=== PATIENT | female | born 1940 | race Caucasian/White ===

== ENCOUNTER 2016-03-28 12:24 | Inpatient (IN) | payer MEDICARE, BC ==
[2016-03-28] VITALS (9 sets, daily range): BP systolic 95–114; RESP 20–22; TEMP 99.3–103; Ht 160 cm; Wt 100.2 kg
[~2016-03-28] VITALS: Ht 160 cm; Wt 100.2 kg
[2016-03-28] MEDS ORDERED: OPTIRAY 350 100 ML VIAL HMH IV ONE (13:00)
[2016-03-28] MEDS ORDERED: ONDANSETRON 4 MG VIAL ONE (13:25)
[2016-03-28] MEDS ORDERED: SODIUM CHLORIDE 0.9% 1,000 ML ONE (13:25)
[2016-03-28] MEDS ORDERED: ONDANSETRON 4 MG VIAL IV PRN (16:20)
[2016-03-28] MEDS ORDERED: SALINE FLUSH 10 ML FLUSH PRN (16:20)
[2016-03-28] MEDS ORDERED: DEXTROSE 50% SYRINGE 50 ML IV PRN (16:20)
[2016-03-28] MEDS ORDERED: GLUCAGON 1 MG VIAL IM PRN (16:20)
[2016-03-28] MEDS ORDERED: ACETAMINOPHEN 325 MG TAB PO PRN (16:20)
[2016-03-28] MEDS ORDERED: PHARMACY TO DOSE XX SCH ×2 (16:20)
[2016-03-28] MEDS ORDERED: DUONEB INH PRN (16:20)
[2016-03-28] MEDS ORDERED: ALU/MAG/SIM 30 ML UDC PO PRN (16:20)
[2016-03-28] MEDS ORDERED: Furosemide 20 MG/2 ML VIAL IV SCH (17:10)
[2016-03-28] MEDS: SALINE FLUSH 10 ML FLUSH SCH (20:00)
[2016-03-28] MEDS: FIDAXOMICIN 200 MG TAB PO SCH (22:05)
[2016-03-28] MEDS: PRAVASTATIN 40 MG TAB PO SCH (22:05)
[2016-03-28] MEDS: SACCHA BOULARDII 250MG CAP PO SCH (22:06)
[2016-03-28] MEDS: APIXABAN 5 MG TAB PO SCH (22:06)
[2016-03-28] MEDS: GABAPENTIN 100 MG CAP PO SCH (22:06)
[2016-03-29] VITALS (7 sets, daily range): BP systolic 90–128; RESP 18–20; TEMP 97.2–100.5
[2016-03-29] MEDS: ACETAMINOPHEN 325 MG TAB PO PRN (00:35)
[2016-03-29] MEDS: SODIUM CHLORIDE 0.9% FLUSH BAG 500 ML IV SCH ×2 (06:00→21:55)
[2016-03-29] MEDS ORDERED: TORSEMIDE 20 MG TAB PO SCH (09:00)
[2016-03-29] MEDS ORDERED: BISOPROLOL 5 MG TAB PO SCH (09:00)
[2016-03-29] MEDS ORDERED: METOPROLOL TART 50 MG TAB PO SCH (10:10)
[2016-03-29] MEDS: APIXABAN 5 MG TAB PO SCH ×2 (10:39→20:54)
[2016-03-29] MEDS: GABAPENTIN 100 MG CAP PO SCH ×2 (10:41→20:54)
[2016-03-29] MEDS: SACCHA BOULARDII 250MG CAP PO SCH ×3 (10:41→20:54)
[2016-03-29] MEDS: ALLOPURINOL 300 MG TAB PO SCH (10:41)
[2016-03-29] MEDS: FIDAXOMICIN 200 MG TAB PO SCH ×3 (10:41→20:54)
[2016-03-29] MEDS: SALINE FLUSH 10 ML FLUSH SCH ×2 (10:41→20:50)
[2016-03-29] MEDS: PROMETHAZINE 25 MG/ML VIAL IV PRN ×2 (15:52→21:01)
[2016-03-29] MEDS: METOPROLOL TART 50 MG TAB PO SCH (20:54)
[2016-03-29] MEDS: PRAVASTATIN 40 MG TAB PO SCH (20:54)
[2016-03-30 02:44] VITALS: BP_SYST 118; RESP 20; TEMP 99.5
[2016-03-30] MEDS ORDERED: KCL CR 20 MEQ TAB PO ONE (07:55)
[2016-03-30 08:04] VITALS: BP_SYST 110; RESP 18; TEMP 98.3
[2016-03-30] MEDS: FIDAXOMICIN 200 MG TAB PO SCH ×2 (08:29→20:03)
[2016-03-30] MEDS: SACCHA BOULARDII 250MG CAP PO SCH ×3 (08:29→20:03)
[2016-03-30] MEDS: METOPROLOL TART 50 MG TAB PO SCH ×2 (08:30→20:03)
[2016-03-30] MEDS: APIXABAN 5 MG TAB PO SCH ×2 (08:30→20:03)
[2016-03-30] MEDS: GABAPENTIN 100 MG CAP PO SCH ×2 (08:30→20:02)
[2016-03-30] MEDS: ALLOPURINOL 300 MG TAB PO SCH (08:30)
[2016-03-30] MEDS: SALINE FLUSH 10 ML FLUSH SCH ×2 (08:34→19:57)
[2016-03-30 12:00] VITALS: BP_SYST 112; TEMP 96.8
[2016-03-30 14:35] VITALS: BP_SYST 108; RESP 20; TEMP 97.1
[2016-03-30 19:40] VITALS: BP_SYST 116; RESP 20; TEMP 98.3
[2016-03-30] MEDS: PRAVASTATIN 40 MG TAB PO SCH (20:03)
[2016-03-30 23:38] VITALS: BP_SYST 108; RESP 20; TEMP 98.7
[2016-03-31 04:30] VITALS: BP_SYST 102; RESP 20; TEMP 98.2
[2016-03-31] MEDS: SODIUM CHLORIDE 0.9% FLUSH BAG 500 ML IV SCH (06:00)
[2016-03-31 07:37] VITALS: BP_SYST 118; RESP 20; TEMP 96.6
[2016-03-31] MEDS: SACCHA BOULARDII 250MG CAP PO SCH ×3 (09:33→20:34)
[2016-03-31] MEDS: FIDAXOMICIN 200 MG TAB PO SCH ×2 (09:33→20:33)
[2016-03-31] MEDS: APIXABAN 5 MG TAB PO SCH ×2 (09:33→20:34)
[2016-03-31] MEDS: TORSEMIDE 20 MG TAB PO SCH (09:34)
[2016-03-31] MEDS: SALINE FLUSH 10 ML FLUSH SCH ×2 (09:34→20:34)
[2016-03-31] MEDS: ALLOPURINOL 300 MG TAB PO SCH (09:34)
[2016-03-31] MEDS: METOPROLOL TART 50 MG TAB PO SCH ×2 (09:34→20:34)
[2016-03-31] MEDS: GABAPENTIN 100 MG CAP PO SCH ×2 (09:34→20:34)
[2016-03-31 11:11] VITALS: BP_SYST 102; RESP 20; TEMP 97.1
[2016-03-31 16:04] VITALS: BP_SYST 118; RESP 24; TEMP 97.4
[2016-03-31 19:31] VITALS: BP_SYST 110; RESP 18; TEMP 96.3
[2016-03-31] MEDS: PRAVASTATIN 40 MG TAB PO SCH (20:34)
[2016-03-31 23:32] VITALS: BP_SYST 112; RESP 18; TEMP 98
[2016-04-01] VITALS (7 sets, daily range): BP systolic 98–110; RESP 18–20; TEMP 97.2–98.1
[2016-04-01] MEDS: SODIUM CHLORIDE 0.9% FLUSH BAG 500 ML IV SCH (07:04)
[2016-04-01] MEDS: TORSEMIDE 20 MG TAB PO SCH (09:22)
[2016-04-01] MEDS: FIDAXOMICIN 200 MG TAB PO SCH ×2 (09:22→20:22)
[2016-04-01] MEDS: APIXABAN 5 MG TAB PO SCH ×2 (09:22→20:22)
[2016-04-01] MEDS: SALINE FLUSH 10 ML FLUSH SCH ×2 (09:22→20:22)
[2016-04-01] MEDS: GABAPENTIN 100 MG CAP PO SCH ×2 (09:22→20:22)
[2016-04-01] MEDS: SACCHA BOULARDII 250MG CAP PO SCH ×3 (09:22→20:22)
[2016-04-01] MEDS: ALLOPURINOL 300 MG TAB PO SCH (09:22)
[2016-04-01] MEDS: METOPROLOL TART 50 MG TAB PO SCH ×2 (09:23→20:22)
[2016-04-01] MEDS: ACETAMINOPHEN 325 MG TAB PO PRN (15:52)
[2016-04-01] MEDS: PRAVASTATIN 40 MG TAB PO SCH (20:22)
[2016-04-02] MEDS: SODIUM CHLORIDE 0.9% FLUSH BAG 500 ML IV SCH (02:28)
[2016-04-02 03:46] VITALS: BP_SYST 100; RESP 20; TEMP 99.1
[2016-04-02] MEDS: SALINE FLUSH 10 ML FLUSH SCH ×2 (08:05→21:59)
[2016-04-02] MEDS: FIDAXOMICIN 200 MG TAB PO SCH ×2 (08:05→21:59)
[2016-04-02] MEDS: ALLOPURINOL 300 MG TAB PO SCH (08:05)
[2016-04-02] MEDS: APIXABAN 5 MG TAB PO SCH ×2 (08:05→21:57)
[2016-04-02] MEDS: GABAPENTIN 100 MG CAP PO SCH ×2 (08:05→21:57)
[2016-04-02] MEDS: TORSEMIDE 20 MG TAB PO SCH (08:05)
[2016-04-02] MEDS: METOPROLOL TART 50 MG TAB PO SCH ×2 (08:05→21:58)
[2016-04-02] MEDS: SACCHA BOULARDII 250MG CAP PO SCH ×3 (08:05→21:59)
[2016-04-02 08:28] VITALS: BP_SYST 98; RESP 24; TEMP 98.9
[2016-04-02 11:12] VITALS: BP_SYST 98; RESP 20; TEMP 97.3
[2016-04-02 16:43] VITALS: BP_SYST 98; RESP 16; TEMP 98.2
[2016-04-02 19:59] VITALS: BP_SYST 100; RESP 20; TEMP 98.7
[2016-04-02] MEDS: PRAVASTATIN 40 MG TAB PO SCH (21:57)
[2016-04-02] MEDS: ACETAMINOPHEN 325 MG TAB PO PRN (22:18)
[2016-04-02 23:10] VITALS: BP_SYST 118; RESP 20; TEMP 97.7
[2016-04-03 03:56] VITALS: BP_SYST 110; RESP 20; TEMP 97.3
[2016-04-03] MEDS: SODIUM CHLORIDE 0.9% FLUSH BAG 500 ML IV SCH (05:44)
[2016-04-03 07:38] VITALS: BP_SYST 98; RESP 20; TEMP 97.4
[2016-04-03] MEDS: SALINE FLUSH 10 ML FLUSH SCH ×2 (08:00→19:50)
[2016-04-03] MEDS: SACCHA BOULARDII 250MG CAP PO SCH ×3 (08:34→20:03)
[2016-04-03] MEDS: TORSEMIDE 20 MG TAB PO SCH (08:34)
[2016-04-03] MEDS: ALLOPURINOL 300 MG TAB PO SCH (08:34)
[2016-04-03] MEDS: FIDAXOMICIN 200 MG TAB PO SCH ×2 (08:34→20:03)
[2016-04-03] MEDS: APIXABAN 5 MG TAB PO SCH ×2 (08:34→20:03)
[2016-04-03] MEDS: GABAPENTIN 100 MG CAP PO SCH ×2 (08:35→20:03)
[2016-04-03] MEDS: METOPROLOL TART 50 MG TAB PO SCH ×2 (08:35→20:03)
[2016-04-03 11:26] VITALS: BP_SYST 100; RESP 20; TEMP 98.3
[2016-04-03 15:51] VITALS: BP_SYST 108; RESP 16; TEMP 98.4
[2016-04-03 19:27] VITALS: BP_SYST 118; RESP 20; TEMP 98.8
[2016-04-03] MEDS: PRAVASTATIN 40 MG TAB PO SCH (20:03)
[2016-04-03 22:30] VITALS: BP_SYST 110; RESP 20; TEMP 98.9
[2016-04-04] VITALS (8 sets, daily range): BP systolic 96–112; RESP 16–24; TEMP 97.6–99
[2016-04-04] MEDS: SODIUM CHLORIDE 0.9% FLUSH BAG 500 ML IV SCH ×2 (05:39→20:36)
[2016-04-04] MEDS: SALINE FLUSH 10 ML FLUSH SCH ×2 (07:56→21:02)
[2016-04-04] MEDS: TORSEMIDE 20 MG TAB PO SCH (09:04)
[2016-04-04] MEDS: SACCHA BOULARDII 250MG CAP PO SCH ×3 (09:05→21:02)
[2016-04-04] MEDS: FIDAXOMICIN 200 MG TAB PO SCH ×2 (09:05→21:02)
[2016-04-04] MEDS: METOPROLOL TART 50 MG TAB PO SCH ×2 (09:05→21:02)
[2016-04-04] MEDS: GABAPENTIN 100 MG CAP PO SCH ×2 (09:05→21:02)
[2016-04-04] MEDS: APIXABAN 5 MG TAB PO SCH ×2 (09:05→21:02)
[2016-04-04] MEDS: ALLOPURINOL 300 MG TAB PO SCH (09:05)
[2016-04-04] MEDS: PRAVASTATIN 40 MG TAB PO SCH (21:02)
[2016-04-04] MEDS: ACETAMINOPHEN 325 MG TAB PO PRN (23:45)
[2016-04-05 03:50] VITALS: BP_SYST 92; RESP 20; TEMP 97.2
[2016-04-05 08:34] VITALS: BP_SYST 90; RESP 16; TEMP 97.2
[2016-04-05] MEDS: TORSEMIDE 20 MG TAB PO SCH (09:15)
[2016-04-05] MEDS: GABAPENTIN 100 MG CAP PO SCH ×2 (09:15→21:04)
[2016-04-05] MEDS: SACCHA BOULARDII 250MG CAP PO SCH ×3 (09:15→21:04)
[2016-04-05] MEDS: ALLOPURINOL 300 MG TAB PO SCH (09:15)
[2016-04-05] MEDS: APIXABAN 5 MG TAB PO SCH ×2 (09:15→21:04)
[2016-04-05] MEDS: FIDAXOMICIN 200 MG TAB PO SCH ×2 (09:15→21:04)
[2016-04-05] MEDS: SALINE FLUSH 10 ML FLUSH SCH ×2 (09:17→20:00)
[2016-04-05 10:41] VITALS: BP_SYST 88; RESP 20; TEMP 97.9
[2016-04-05] MEDS: METOPROLOL TART 50 MG TAB PO SCH (13:22)
[2016-04-05] MEDS: METOPROLOL TART 25 MG TAB PO SCH ×2 (14:03→21:00)
[2016-04-05] MEDS: SODIUM CHLORIDE 0.9% 1,000 ML IV SCH (14:39)
[2016-04-05 16:12] VITALS: BP_SYST 110; RESP 20; TEMP 97.6
[2016-04-05 19:35] VITALS: BP_SYST 102; RESP 20; TEMP 98.4
[2016-04-05] MEDS: PRAVASTATIN 40 MG TAB PO SCH (21:03)
[2016-04-06] VITALS (7 sets, daily range): BP systolic 90–130; RESP 18–20; TEMP 96.5–97.6
[2016-04-06] MEDS: ACETAMINOPHEN 325 MG TAB PO PRN (00:11)
[2016-04-06] MEDS: SODIUM CHLORIDE 0.9% 1,000 ML IV SCH ×2 (00:12→16:25)
[2016-04-06] MEDS: SODIUM CHLORIDE 0.9% FLUSH BAG 500 ML IV SCH (05:17)
[2016-04-06] MEDS: SALINE FLUSH 10 ML FLUSH SCH ×2 (08:00→20:00)
[2016-04-06] MEDS: METOPROLOL TART 25 MG TAB PO SCH ×2 (08:45→21:00)
[2016-04-06] MEDS: FIDAXOMICIN 200 MG TAB PO SCH ×2 (08:47→21:12)
[2016-04-06] MEDS: SACCHA BOULARDII 250MG CAP PO SCH ×3 (08:47→21:13)
[2016-04-06] MEDS: GABAPENTIN 100 MG CAP PO SCH ×2 (08:47→21:12)
[2016-04-06] MEDS: APIXABAN 5 MG TAB PO SCH ×2 (08:47→21:12)
[2016-04-06] MEDS: TORSEMIDE 20 MG TAB PO SCH (08:47)
[2016-04-06] MEDS: ALLOPURINOL 300 MG TAB PO SCH (08:47)
[2016-04-06] MEDS: PRAVASTATIN 40 MG TAB PO SCH (21:12)
[2016-04-07] VITALS (7 sets, daily range): BP systolic 98–130; RESP 18–20; TEMP 96.6–97.9
[2016-04-07] MEDS: ACETAMINOPHEN 325 MG TAB PO PRN (00:43)
[2016-04-07] MEDS: SODIUM CHLORIDE 0.9% 1,000 ML IV SCH (05:01)
[2016-04-07] MEDS: SODIUM CHLORIDE 0.9% FLUSH BAG 500 ML IV SCH (05:02)
[2016-04-07] MEDS: SALINE FLUSH 10 ML FLUSH SCH ×2 (08:00→19:58)
[2016-04-07] MEDS: SACCHA BOULARDII 250MG CAP PO SCH ×3 (09:47→20:00)
[2016-04-07] MEDS: APIXABAN 5 MG TAB PO SCH ×2 (09:47→20:00)
[2016-04-07] MEDS: METOPROLOL TART 25 MG TAB PO SCH ×2 (09:48→20:01)
[2016-04-07] MEDS: GABAPENTIN 100 MG CAP PO SCH ×2 (09:48→20:00)
[2016-04-07] MEDS: FIDAXOMICIN 200 MG TAB PO SCH ×2 (09:48→20:00)
[2016-04-07] MEDS: ALLOPURINOL 300 MG TAB PO SCH (09:48)
[2016-04-07] MEDS: KCL CR 10 MEQ CAP PO SCH (13:25)
[2016-04-07] MEDS: PRAVASTATIN 40 MG TAB PO SCH (20:00)
[2016-04-08] VITALS (7 sets, daily range): BP systolic 90–124; RESP 16–20; TEMP 96–98.3
[2016-04-08] MEDS: SODIUM CHLORIDE 0.9% FLUSH BAG 500 ML IV SCH ×2 (06:00→20:12)
[2016-04-08] MEDS: FIDAXOMICIN 200 MG TAB PO SCH ×2 (09:14→20:33)
[2016-04-08] MEDS: ALLOPURINOL 300 MG TAB PO SCH (09:14)
[2016-04-08] MEDS: APIXABAN 5 MG TAB PO SCH ×2 (09:15→20:34)
[2016-04-08] MEDS: METOPROLOL TART 25 MG TAB PO SCH ×2 (09:15→20:33)
[2016-04-08] MEDS: SALINE FLUSH 10 ML FLUSH SCH ×2 (09:15→20:34)
[2016-04-08] MEDS: SACCHA BOULARDII 250MG CAP PO SCH ×3 (09:15→20:33)
[2016-04-08] MEDS: KCL CR 10 MEQ CAP PO SCH (09:15)
[2016-04-08] MEDS: GABAPENTIN 100 MG CAP PO SCH ×2 (09:17→20:33)
[2016-04-08] MEDS: PRAVASTATIN 40 MG TAB PO SCH (20:33)
[2016-04-09 03:00] VITALS: BP_SYST 105; RESP 20; TEMP 97.4
[2016-04-09] MEDS: ACETAMINOPHEN 325 MG TAB PO PRN (03:15)
[2016-04-09 07:50] VITALS: BP_SYST 108; RESP 18; TEMP 97.6
[2016-04-09] MEDS: SALINE FLUSH 10 ML FLUSH SCH (08:00)
[2016-04-09] MEDS: METOPROLOL TART 25 MG TAB PO SCH (09:00)
[2016-04-09] MEDS: FIDAXOMICIN 200 MG TAB PO SCH (09:40)
[2016-04-09] MEDS: GABAPENTIN 100 MG CAP PO SCH (09:40)
[2016-04-09] MEDS: SACCHA BOULARDII 250MG CAP PO SCH (09:40)
[2016-04-09] MEDS: KCL CR 10 MEQ CAP PO SCH (09:40)
[2016-04-09] MEDS: ALLOPURINOL 300 MG TAB PO SCH (09:40)
[2016-04-09] MEDS: APIXABAN 5 MG TAB PO SCH (09:40)
[2016-04-09 10:51] VITALS: BP_SYST 100; TEMP 97.1
[2016-04-09 13:41] VITALS: BP_SYST 100; RESP 18; TEMP 97.1
== END 2016-04-09 14:19 | disposition home or self-care (01) | DRG 372 ==
LOC: ENRESERVTM → ENRESERVDT → ER 12:59 → EMR 16:28 → ENPENDDIS 16:28 → 3NT 17:13
PROVIDERS: ADMIT Hospitalist; ATTEND Hospitalist
CPT/HCPCS: 36415; 71010; 74177; 80048; 80053; 81001; 82947; 83690; 83735; 83880; 85025; 87040; 87045; 87046; 87088; 87177; 87493; 87804; 94799; 96361; 96374; 99223; 99232; 99233; 99238